=== PATIENT | female | born 1935 | race African-American/Black ===

== ENCOUNTER 2020-08-12 18:33 | Emergency (ER) | payer OTHER ==
[~2020-08-12] VITALS: Ht 160 cm; Wt 61.2 kg
[2020-08-12] MEDS ORDERED: ACETAMINOPHEN 325MG TABLET PO ONE (19:15)
[2020-08-12] MEDS ORDERED: LIDOCAINE 5% PATCH TOP SCH ×2 (19:15)
[2020-08-12] MEDS ORDERED: CYCL25PO21 MT (21:02)
[2020-08-12] MEDS ORDERED: LIDO700A15 TP (21:02)
[2020-08-12 21:30] VITALS: BP 176/88
== END 2020-08-12 22:02 | disposition home or self-care (01) ==
LOC: ER 18:33
DX: S13.4XXA Sprain of ligaments of cervical spine, initial encounter (principal); R07.89 Other chest pain; M47.892 Other spondylosis, cervical region; I10 Essential (primary) hypertension; E78.00 Pure hypercholesterolemia, unspecified; Z88.0 Allergy status to penicillin; Z96.659 Presence of unspecified artificial knee joint; V43.52XA Car driver injured in collision with other type car in traffic accident, initial encounter; W22.11XA Striking against or struck by driver side automobile airbag, initial encounter; Y93.89 Activity, other specified; Y92.488 Other paved roadways as the place of occurrence of the external cause
CPT/HCPCS: 71045; 93005; 99285